=== PATIENT | male | born 1960 | race Caucasian/White ===

== ENCOUNTER → 2019-03-11 | Outpatient (CLI) | payer BC ==
[~2019-03-11] MED LIST: ALBU8.5H IH; AMOX1TAB9 PO; ASP325 PO; ATOR20TA22 PO; ATOR20TA65 PO; AZIT-17 PO; BENZ200C15 PO; CALC625T80 PO; CEP500 PO; ENO30I SC; LOR5/325 PO; LOR75 PO; METH-284 PO; METH5TAB87 PO; METO25TA23 PO; METXL50 PO; NAPR220C12 PO; NICO4LOZ BC; NO MEDS; ONDA8TAB94 PO; PRED20TA6 PO
== END ==
LOC: RESP 08:42
PROVIDERS: ATTEND Internal Medicine
DX: Z02.9 Encounter for administrative examinations, unspecified (principal)

== ENCOUNTER → 2019-04-16 | Outpatient (CLI) | payer BC ==
--- NOTE | 2019-04-16 16:44 | RADIOLOGY IMAGING REPORT ---
[place] [facility] [place] NAME: Cameron De Leon : 1960 MR: [id number] V: [id number] EXAM DATE: ORDERING PHYSICIAN: LI GARCÍA TECHNOLOGIST: Location: [facility] [place] Patient: Cameron De Leon : 1960 Visit/Account:[id number] Date of Sevice: 04/16/2019 EXAMINATION: PA and Lateral Chest 04/16/2019 3:58 PM HISTORY: tobacco smoking COMPARISON: 07/23/2007. Chest x-ray with abdominal series 10/16/2014. FINDINGS: Cardiomediastinal contours: Normal Lungs and pleura: Normal Bones/soft tissues: Minimal degenerative changes along the spine. Right AC joint degenerative change s again shown. IMPRESSION: No acute cardiopulmonary abnormality. Report Dictated By: Shay Cifuentes MD at 04/16/2019 4:30 PM Report E-Signed By: Shay Cifuentes MD at 04/16/2019 4:35 PM WSN:[email or web address]
== END ==
LOC: RAD 15:54
PROVIDERS: ATTEND Internal Medicine
DX: Z00.00 Encounter for general adult medical examination without abnormal findings (principal); E78.5 Hyperlipidemia, unspecified; E05.90 Thyrotoxicosis, unspecified without thyrotoxic crisis or storm; Z72.0 Tobacco use
CPT/HCPCS: 71046